=== PATIENT | female | born 1990 | race Caucasian/White ===

== ENCOUNTER → 2017-02-01 | Outpatient (CLI) | payer BC ==
[2017-02-01 19:19] LABS: CH 29.1; CHCM 32.7; HCT 36.6 % (34.0-46.0); HDW 2.61; HGB 12.2 gm/dL (11.4-16.0); MCH 29.9 pg (25.0-35.0); MCHC 33.4 g/dL (31.0-37.0); MCV 89.4 fL (80.0-100.0); Mean Platelet Volume 9.3; WBC 10.8 k/uL (3.8-10.6)
[2017-02-01 19:57] LABS: Glucose 91 mg/dL (74-99); Non-African American GFR(MDRD) >60 (>60 ml/min/1.73 sqM)
[2017-02-02 01:59] LABS: Treponemal Ab Non-Reactive (Non-Reactive)
== END | disposition home or self-care (01) ==
LOC: LABMAIN 18:27
PROVIDERS: ATTEND Obstetrics & Gynecology
DX: Z34.81 Encounter for supervision of other normal pregnancy, first trimester (principal); Z3A.00 Weeks of gestation of pregnancy not specified
CPT/HCPCS: 36415; 82565; 82947; 85027; 86762; 86780; 86850; 86900; 86901; 87340

== ENCOUNTER → 2017-02-09 | Outpatient (CLI) | payer BC ==
--- NOTE | 2017-02-09 13:15 | US ---
EXAMINATION TYPE: US OB <= 14 wk fetus DATE OF EXAM: 02/09/2017 COMPARISON: NONE CLINICAL HISTORY: O76 Abnormal Absent Heart Sounds. Absent heart tones EXAM PERFORMED: Transabdominal (TA) EXAM MEASUREMENTS: GESTATIONAL AGE / DATING Physician Established: (10 weeks/6 days) EDC: 09/01/17 Dates by LMP: (10 weeks/6 days) EDC: 09/01/17 Dates by First Scan: no prior scan Dates by Current Scan for: (11 weeks/3 days) EDC: 08/28/17 MATERNAL ANATOMY Uterus: 15.2 x 5.7 x 8.2cm Right Ovary: 4.0 x 2.2 x 3.1cm Left Ovary: 2.4 x 1.4 x 1.7cm Post CDS / Adnexa: wnl Presence of free fluid: no Presence of corpus luteal cyst: yes, right ovary = 2.2 x 2.0 x 2.0cm GESTATION / SURVEY CRL: 4.6cm (11 weeks/3 days) Yolk Sac (normal less than 6mm): not seen Heart Rate: 165 bpm Rhythm: Normal IUP: Viable IUP Date of LMP: 11/25/16 Beta HcG (if available): Not available at this time Single viable IUP 11wks/3days with NITHIN of 08/28/17. Corpus luteum right ovary Single live intrauterine gestation is seen as gestational sac and pole are identified. Yolk sac is not clearly seen. heart tones are regular and measure upper limits of normal. No free fluid is seen in pelvic cul-de-sac. Both ovaries are identified. Within periphery of right ovary there is 2.2 cm hypoechoic lesion felt t o reflect corpus luteal cyst. No suspicious extra ovarian adnexal masses are identified. IMPRESSION: Single live intrauterine gestation is confirmed, mean crown-rump length is 4.6 cm corresponding to 11 week 3 day old fetus.
== END | disposition home or self-care (01) ==
LOC: RADUSWWP 11:39
PROVIDERS: ATTEND Obstetrics & Gynecology
DX: O76 Abnormality in fetal heart rate and rhythm complicating labor and delivery (principal); Z3A.11 11 weeks gestation of pregnancy
CPT/HCPCS: 76801

== ENCOUNTER → 2017-04-27 | Outpatient (CLI) | payer BC ==
--- NOTE | 2017-04-28 07:57 | US ---
EXAMINATION TYPE: US OB Call Back DATE OF EXAM: 04/27/2017 COMPARISON: NONE CLINICAL HISTORY: Anatomy OB callback. Assess LVOT/RVOT GESTATIONAL AGE / DATING Dates by Initial Survey Scan: (21 weeks/5 days) EDC: 09/01/2017 HEART RATE: 143 bpm RHYTHM: Normal ANATOMY SEEN (second anatomic survey look): Four Chamber Heart: yes Outflow tracts:? LVOT/RVOT: yes IMPRESSION: 4 chamber heart Outflow tracts are within normal limits.
== END | disposition home or self-care (01) ==
LOC: CANPRECLI → RADUSWWP 16:25
PROVIDERS: ATTEND Obstetrics & Gynecology
DX: Z53.9 Procedure and treatment not carried out, unspecified reason (principal)

== ENCOUNTER 2017-08-27 06:02 | Inpatient (IN) | payer BC ==
--- NOTE | 2017-08-26 06:19 | P.HPOB ---
History of Present Illness H&P Date: 08/26/17 Chief Complaint: Patient is presenting for repeat section. This patient is a pleasant 27-year-old 2 para 1 female estimated date of confinement 09/01/2018 estimated gestational age 39-2/7 weeks who presents to labor and delivery for elective repeat section. Patient's care has been uncomplicated. She's had a previous section and has requested repeat. Review of Systems Gastrointestinal: Reports heartburn Genitourinary: Reports Menstruation: Reports amenorrhea Past Medical History Past Medical History: No Reported History Additional Past Medical History / Comment(s): Morbid obesity. History of Any Multi-Drug Resistant Organisms: None Reported Past Surgical History: Section, Cholecystectomy Additional Past Surgical History / Comment(s): oral surgery Past Anesthesia/Blood Transfusion Reactions: No Reported Reaction Past Psychological History: No Psychological Hx Reported Smoking Status: Never smoker Past Alcohol Use History: None Reported Past Drug Use History: None Reported - Past Family History Mother Family Medical History: Cancer Medications and Allergies Home Medications Medication Instructions Recorded Confirmed Type Cetirizine HCl [Zyrtec] 10 mg PO HS 08/24/17 08/24/17 History Pnv No.95/Ferrous Fum/Folic AC 1 each PO DAILY 08/24/17 08/24/17 History [ Multivitamin Tablet] Allergies Allergy/AdvReac Type Severity Reaction Status Date / Time Penicillins Allergy Rash/Hives Verified 08/24/17 14:24 Exam - OBG Physical Exam Abdomen: bowel sounds normal, no diffuse tenderness, no bruit present, no guarding noted, no hepatomegaly, no splenomegaly, no mass Vulva: both: normal Vagina: normal moisture, no discharge Cervix: no lesion (Cervix in the office was closed.), no discharge Uterus: enlarged (Fundal height is greater than dates.) Results blood work shows she is O positive, rubella immune, RPR nonreactive, hepatitis B negative, group B strep was positive, Glucola was abnormal but a normal three-hour gtt., ultrasound showed large for gestational age/ macrosomia. Assessment and Plan Assessment: This is a pleasant 27-year-old 2 para 1 female 39-2/7 weeks gestation who is presenting for repeat section secondary to previous section and macrosomia. Plan is repeat low transverse section. This patient I discussed the surgery and risks including risks of infection, bleeding, possible injury bowel, bladder, vessels, and/or other organs. She understands increased risk of DVT and pulmonary embolism. All the patient's questions are answered and a written consent is obtained. (1) Previous delivery affecting Status: Acute Code(s): O34.219 - MATERNAL CARE FOR UNSP TYPE SCAR FROM PREVIOUS DEL SNOMED Code(s): 153808026 (2) macrosomia Status: Acute Code(s): O36.60X0 - MATERNAL CARE FOR EXCESS GROWTH, UNSP TRIMESTER, UNSP SNOMED Code(s): 65543506 (3) Group B streptococcal carriage complicating Status: Acute Code(s): O99.820 - STREPTOCOCCUS B CARRIER STATE COMPLICATING SNOMED Code(s): 661909378202672 (4) Morbid obesity Status: Acute Code(s): E66.01 - MORBID (SEVERE) OBESITY DUE TO EXCESS CALORIES SNOMED Code(s): 625300171
[2017-08-27] MEDS ORDERED: LACTATED RINGERS 1,000 ML IV SCH (06:14)
[2017-08-27] MEDS ORDERED: LACTATED RINGERS 1,000 ML IV ONE (06:14)
[2017-08-27] MEDS ORDERED: CITRIC ACID-SODIUM CITRATE 15 ML CUP PO ONE (06:14)
[2017-08-27 06:28] VITALS: BMI 48.1
[2017-08-27 06:52] LABS: HCT 34.3 % (34.0-46.0); HGB 11.6 gm/dL (11.4-16.0); MCH 27.7 pg (25.0-35.0); MCHC 33.8 g/dL (31.0-37.0); MCV 81.9 fL (80.0-100.0); Mean Platelet Volume 12.2; Platelet Count 122 k/uL (150-450); RBC 4.19 m/uL (3.80-5.40); RDW 15.1 % (11.5-15.5); WBC 13.4 k/uL (3.8-10.6)
[2017-08-27 07:22] LABS: Eosinophils # (M) 0.13 k/uL (0-0.7); Large Platelets Present; Lymphocytes # (M) 1.74 k/uL (1.0-4.8); Monocytes # (M) 1.47 k/uL (0-1.0); Neutrophils # (M) 10.05 k/uL (1.3-7.7); Neutrophils % (M) 75 %; Nucleated Red Blood Cells 0 /100 WBC (0-0); Total Cells Counted 100
[2017-08-27] MEDS ORDERED: OXYTOCIN 10 UNIT/ML 1 ML VIAL ONE (07:53)
[2017-08-27] MEDS ORDERED: MORPHINE SULFATE (PF) 0.3 MG/0.3 ML SYR ONE (07:53)
[2017-08-27] MEDS ORDERED: PROMETHAZINE INJ 25 MG/ML 1 ML VIAL ONE (07:53)
[2017-08-27] MEDS ORDERED: ONDANSETRON 4 MG/2 ML VIAL ONE (07:53)
[2017-08-27] MEDS ORDERED: NALBUPHINE 10 MG/ML AMPUL ONE (07:53)
[2017-08-27] MEDS ORDERED: DEXTROSE 50%-WATER 50 ML SYRINGE IVP ONE (07:53)
[2017-08-27] MEDS ORDERED: DEXAMETHASONE SOD PHOS (MDV) 100 MG/10 ML VIAL ONE (07:53)
[2017-08-27] MEDS ORDERED: PHENYLEPHRINE-0.9% NACL SYG 1 MG/10 ML SYRINGE ONE (07:53)
[2017-08-27] MEDS ORDERED: NALOXONE 0.4 MG/ML 1 ML VIAL IV PRN ×2 (08:36→08:46)
[2017-08-27] MEDS ORDERED: KETOROLAC 30 MG/ML 1 ML VIAL IVP PRN ×2 (08:36→08:46)
[2017-08-27] MEDS ORDERED: ONDANSETRON 4 MG/2 ML VIAL IVP PRN ×2 (08:36→08:46)
[2017-08-27] MEDS ORDERED: MORPHINE SULFATE 4 MG/ML SYRINGE IVP PRN (08:36)
[2017-08-27] MEDS ORDERED: diphenhydrAMINE 50 MG/ML 1 ML VIAL IVP PRN ×2 (08:36→08:46)
[2017-08-27] MEDS ORDERED: ZOLPIDEM 5 MG TAB PO PRN (08:46)
[2017-08-27] MEDS ORDERED: LANOLIN CREAM 5 GM TUBE TOPICAL PRN (08:46)
[2017-08-27] MEDS ORDERED: OXYTOCIN 20 UNITS/1000 ML NS 1,000 ML IV SCH (08:46)
[2017-08-27] MEDS ORDERED: diphenhydrAMINE 25 MG CAP PO PRN (08:46)
[2017-08-27] MEDS ORDERED: METOCLOPRAMIDE 5 MG/ML 2 ML VIAL IVP PRN (08:46)
--- NOTE | 2017-08-27 08:53 | P.OP ---
Date of Procedure: 08/27/17 Preoperative Diagnosis: #1: 39-2/7 weeks . #2: Previous section desires repeat. #3: Multi parity desires permanent sterilization. #4: macrosomia. #5: Morbid obesity Postoperative Diagnosis: Same; true knot in the umbilical cord. Procedure(s) Performed: #1: Repeat low transverse section. #2: Bilateral partial salpingectomy. Anesthesia: spinal Surgeon: Azeem Ivory Heel Nail Rasper #1: Margarita Isidro Estimated Blood Loss (ml): 800 Pathology: other (Placenta and bilateral fallopian tube segments.) Condition: stable Disposition: floor Indications for Procedure: Please see dictated H&P for intimate details of this patient's admission. Brief summary this is a pleasant 27-year-old 2 para 1 female 39-2/7 weeks gestation who is admitted to labor and delivery for elective repeat section and also requesting permanent sterilization. Patient understands a tubal ligation is a permanent procedure although does have a failure rate. She understands if she does become she has a 50% chance of a tubal or an ectopic . Patient also understands surgery itself has risks including risks of infection, bleeding, possible injury bowel, bladder , vessels, and/or other organs. Patient her stands risk of DVT and pulmonary embolism. All the patient's questions are answered and a written consent is obtained. Operative Findings: This is a vigorous viable male Apgars were 8 and 9 delivery time is 0817 hours. weight was 10 lbs. 2 oz. which is 4580 g. There was a true knot in the umbilical cord. Description of Procedure: This patient has a Carvalho catheter placed to straight drain. She is subsequently taken to the operating room where she is sat up and spinal anesthetic is administered without incident. With an adequate level of anesthesia she has abdominal prep and drape. Scalpels then taken the previous Pfannenstiel incision is incised. A second scalpel is taken down to the fascia and the fascia scored with a knife. Fascial incision extended bilaterally using the Bernal scissors. Fascia is then dissected sharply off the rectus muscles. Rectus muscles are and the peritoneum identified and entered sharply. Peritoneal incision extended superior and inferior without difficulty. At this time the Oseas self-retaining retractor is placed. Bladder blade is placed. The bladder peritoneum was taken sharply off the lower uterine segment with Metzenbaum scissors. Scalpels and taken a low transverse uterine incision is made. Using a hemostat I enter the uterine cavity bluntly and there is loss of clear fluid. This incision is extended bluntly. 's head is then guided through the incision with fundal pressure delivered. Mouth and nares are bulb suctioned. There is no evidence of a nuchal cord. Then deliver the rest this infant's body. This is a vigorous viable male Apgars are 8 and 9 delivery time is 0817 hours. After delivery of the the umbilical cords doubly clamped and cut it is noted this time I do not in the middle the umbilical cord. This is quite loose. The is spontaneous respirations and good cry and. is handed off to the nurses in attendance. The placenta is then manually extracted intact. Uterus is then externalized and the uterine incision demarcated with Lerma clamps. Uterine incision is then closed using 0 Vicryl running locked fashion 2 layers. Excellent hemostasis is noted. Then turned my attention of left fallopian tube and approximately 4 cm from the cornual insertion I grabbed the fallopian tube with a hemostat and a small window is made to the mesial salpinx with Bovie cautery. Using a 2-0 silk suture I doubly ligate a knuckle the tube on both sides. A 1-2 cm segment of tube was then excised and handed off to pathology. Cauterization is done of the tubal ends. Excellent hemostasis is noted I do a similar technique on the right side with similar results. With good hemostasis noted excess fluid is then removed from the abdomen and pelvis. Uterus placed back into the abdomen. Final inspection shows all be hemostatic. The parietal peritoneum was then identified and closed using 0 Vicryl running fashion. The rectus muscles reapproximated in 0 Vicryl interrupted fashion. Fascial incision is then closed using 0 PDS in a running fashion. Fascial incision is intact and hemostatic. Subcutaneous tissues and closed using a 3-0 Vicryl. Skin is and closed using edson. All counts are correct 3. There are no complications. Patient is then taken to her birthing suite with her in satisfactory condition.
[2017-08-27] MEDS: SENNOSIDES-DOCUSATE SODIUM 1 EACH TAB PO SCH ×2 (09:55→19:52)
[2017-08-27] MEDS: LACTATED RINGERS 1,000 ML IV SCH ×3 (12:48→21:49)
[2017-08-27] MEDS: IBUPROFEN 600 MG TAB PO PRN (19:38)
--- NOTE | 2017-08-28 06:35 | P.PNOBGPC ---
Subjective - Subjective Patient reports: Reports appetite normal, Reports voiding normally, Reports pain well controlled, Reports ambulating normally : doing well Objective - Vital Signs Latest vital signs: Vital Signs Temp Pulse Resp BP Pulse Ox 08/28/17 04:00 98.2 F 77 18 122/77 100 08/28/17 03:00 17 08/28/17 00:40 18 08/28/17 00:15 98.2 F 77 18 134/74 98 08/27/17 22:56 18 08/27/17 20:55 18 08/27/17 19:50 97.9 F 73 18 132/82 97 08/27/17 19:45 18 08/27/17 17:00 18 08/27/17 15:28 98.7 F 88 20 136/69 97 08/27/17 15:00 18 08/27/17 12:50 20 08/27/17 11:37 18 08/27/17 10:45 97.7 F 76 16 116/60 98 08/27/17 10:15 69 16 121/56 99 08/27/17 09:45 63 16 128/57 98 08/27/17 09:30 60 16 97/55 94 L 08/27/17 09:15 57 L 16 119/57 98 08/27/17 09:00 67 16 112/58 99 08/27/17 08:45 96.9 F L 64 16 103/54 99 Intake and Output 08/27/17 08/27/17 08/28/17 14:59 22:59 06:59 Intake Total 1000 Output Total 300 1000 400 Balance 700 -1000 -400 Intake: Intake, IV Titration 1000 Amount Lactated Ringers 1,000 ml 1000 @ 125 mls/hr IV .[facility] Rx#:[id number] Output: Urine 300 1000 400 - Exam Lungs: bilateral: normal Chest: Normal S1, Normal S2 Extremities: Present: normal Abdomen: Present: normal appearance, soft. Absent: distention, tenderness Incision: Present: normal, dry, intact Uterus: Present: normal, firm - Labs Labs: Abnormal Lab Results - Last 24 Hours (Table) 08/27/17 Range/Units 06:42 WBC 13.4 H (3.8-10.6) k/uL Plt Count 122 L (150-450) k/uL Neutrophils # (Manual) 10.05 H (1.3-7.7) k/uL Monocytes # (Manual) 1.47 H (0-1.0) k/uL Assessment and Plan Assessment: Post operative day #1. Patient is resting without complaints. Vital signs are stable she is afebrile. Uterus is firm nontender she's having normal lochia. Her incision is intact and dry. CBC is pending at the time of this dictation. My impression this is a normal postoperative course. Plan is to continue ambulation, allow the patient to shower, regular diet, and continue postoperative care. (1) Previous delivery affecting Current Visit: Yes Status: Acute Code(s): O34.219 - MATERNAL CARE FOR UNSP TYPE SCAR FROM PREVIOUS DEL SNOMED Code(s): 846159217 (2) macrosomia Current Visit: Yes Status: Acute Code(s): O36.60X0 - MATERNAL CARE FOR EXCESS GROWTH, UNSP TRIMESTER, UNSP SNOMED Code(s): 69505576 (3) Group B streptococcal carriage complicating Current Visit: Yes Status: Acute Code(s): O99.820 - STREPTOCOCCUS B CARRIER STATE COMPLICATING SNOMED Code(s): 569308262173159 (4) Morbid obesity Current Visit: Yes Status: Acute Code(s): E66.01 - MORBID (SEVERE) OBESITY DUE TO EXCESS CALORIES SNOMED Code(s): 779266156
[2017-08-28] MEDS: IBUPROFEN 600 MG TAB PO PRN ×3 (07:44→19:27)
[2017-08-28 07:47] LABS: Basophils % (A) 0 %; Eosinophils # (A) 0.1 k/uL (0-0.7); Eosinophils % (A) 1 %; HCT 32.2 % (34.0-46.0); HGB 10.8 gm/dL (11.4-16.0); Lymphocytes # (A) 2.3 k/uL (1.0-4.8); Lymphocytes % (A) 17 %; MCH 27.9 pg (25.0-35.0); MCHC 33.4 g/dL (31.0-37.0); MCV 83.6 fL (80.0-100.0); Mean Platelet Volume 11.9; Monocytes # (A) 1.1 k/uL (0-1.0); Monocytes % (A) 8 %; Neutrophils # (A) 10.1 k/uL (1.3-7.7); Neutrophils % (A) 73 %; Platelet Count 103 k/uL (150-450); RBC 3.85 m/uL (3.80-5.40); RDW 15.5 % (11.5-15.5); WBC 13.7 k/uL (3.8-10.6)
[2017-08-28 08:20] LABS: Large Platelets Present; Poikilocytosis (M) Present
[2017-08-28] MEDS: ACETAMINOPHEN TAB 325 MG TAB PO PRN ×2 (10:28→22:45)
[2017-08-28] MEDS: SENNOSIDES-DOCUSATE SODIUM 1 EACH TAB PO SCH ×2 (19:26→19:59)
[2017-08-28] MEDS: LACTATED RINGERS 1,000 ML IV SCH ×2 (19:58→19:59)
--- NOTE | 2017-08-28 20:26 | P.PN ---
Progress Note - Text Date:08/28 Time:2009 Patient is status post . Patient seen this morning with VAS score of 2. c/o of pruritus, no c/o nausea/vomiting, comfortable and doing well today.
[2017-08-29 00:38] VITALS: RESP 18; TEMP 97.8
[2017-08-29] MEDS: IBUPROFEN 600 MG TAB PO PRN ×2 (01:37→09:12)
--- NOTE | 2017-08-29 06:37 | P.PNOBGPC ---
Subjective - Subjective Patient reports: Reports appetite normal, Reports voiding normally, Reports pain well controlled, Reports ambulating normally : doing well Objective - Vital Signs Latest vital signs: Vital Signs Temp Pulse Resp BP Pulse Ox 08/29/17 00:00 97.8 F 77 18 134/78 100 08/28/17 16:38 98.0 F 86 16 144/83 08/28/17 08:00 97.8 F 92 16 120/63 - Exam Lungs: bilateral: normal Chest: Normal S1, Normal S2 Extremities: Present: normal Abdomen: Present: normal appearance, soft. Absent: distention, tenderness Incision: Present: normal, dry, intact Uterus: Present: normal, firm - Labs Labs: Abnormal Lab Results - Last 24 Hours (Table) 08/28/17 Range/Units 07:25 WBC 13.7 H (3.8-10.6) k/uL Hgb 10.8 L (11.4-16.0) gm/dL Hct 32.2 L (34.0-46.0) % Plt Count 103 L (150-450) k/uL Neutrophils # 10.1 H (1.3-7.7) k/uL Monocytes # 1.1 H (0-1.0) k/uL Assessment and Plan Assessment: Post operative day #2. Patient is resting without complaints. She wishes to go home. Vital signs are stable she is afebrile. Uterus is firm nontender, and her incision is intact and dry. Patient is tolerating regular diet, urinating, ambulating without difficulty. My impression this patient is doing very well stable for discharge home. Plan is discharge home later today (1) Previous delivery affecting Current Visit: Yes Status: Acute Code(s): O34.219 - MATERNAL CARE FOR UNSP TYPE SCAR FROM PREVIOUS DEL SNOMED Code(s): 763386376 (2) macrosomia Current Visit: Yes Status: Acute Code(s): O36.60X0 - MATERNAL CARE FOR EXCESS GROWTH, UNSP TRIMESTER, UNSP SNOMED Code(s): 87580493 (3) Group B streptococcal carriage complicating Current Visit: Yes Status: Acute Code(s): O99.820 - STREPTOCOCCUS B CARRIER STATE COMPLICATING SNOMED Code(s): 263843697653508 (4) Morbid obesity Current Visit: Yes Status: Acute Code(s): E66.01 - MORBID (SEVERE) OBESITY DUE TO EXCESS CALORIES SNOMED Code(s): 061483360
[2017-08-29] MEDS: ACETAMINOPHEN TAB 325 MG TAB PO PRN (06:41)
--- NOTE | 2017-08-29 06:44 | P.DS ---
Providers Date of admission: 08/27/17 06:02 Expected date of discharge: 08/29/17 Attending physician: Azeem Ivory Primary care physician: Stated None - Discharge Diagnosis(es) (1) Previous delivery affecting Current Visit: Yes Status: Acute (2) macrosomia Current Visit: Yes Status: Acute (3) Group B streptococcal carriage complicating Current Visit: Yes Status: Acute (4) Morbid obesity Current Visit: Yes Status: Acute Hospital Course: Please see dictated H&P for intimate details of this patient's admission. Brief summary this pleasant 27-year-old 2 para 1 female 39-2/7 weeks gestation admitted to labor and delivery for elective repeat section and also requesting permanent sterilization. Patient underwent a repeat low transverse section and bilateral partial salpingectomy for a viable male infant. Please see dictated delivery note. Post operative day #2 patient is doing well felt to be stable for discharge home. Of note she did have mild thrombocytopenia on admission of 120 repeat was 101. Plan is to repeat this as an outpatient. This appears to be in a mild thrombocytopenia the . Patient is discharged home follow up with me in 1 week. Procedures: Repeat low transverse section and bilateral partial salpingectomy Patient Condition at Discharge: Good Plan - Discharge Summary New Discharge Prescriptions: New Ibuprofen [Motrin] 600 mg PO Q6HR PRN #40 tab PRN Reason: Mild Pain Or Fever >= 100.5 No Action Cetirizine HCl [Zyrtec] 10 mg PO HS Pnv No.95/Ferrous Fum/Folic AC [ Multivitamin Tablet] 1 each PO DAILY Discharge Medication List Cetirizine HCl [Zyrtec] 10 mg PO HS 08/24/17 [History] Pnv No.95/Ferrous Fum/Folic AC [ Multivitamin Tablet] 1 each PO DAILY [History] Ibuprofen [Motrin] 600 mg PO Q6HR PRN #40 tab 08/29/17 [Rx] Follow up Appointment(s)/Referral(s): Azeem Ivory MD [STAFF PHYSICIAN] - 1 Week (Please call the office tomorrow to see me in approximately 1 week for an incision check. You do have a visit on October 13 at a 40 5 AM.) Patient Instructions/Handouts: (DC) Activity/Diet/Wound Care/Special Instructions: No strenuous activity or lifting for 6 weeks. No intercourse for 6 weeks. Please call if any fever, chills, excessive vaginal bleeding, and/or abdominal pain. Discharge Disposition: HOME SELF-CARE
[2017-08-29 09:19] VITALS: BP 144/81; PULSE 88
[2017-08-29] MEDS: SENNOSIDES-DOCUSATE SODIUM 1 EACH TAB PO SCH (09:20)
== END 2017-08-29 11:50 | disposition home or self-care (01) | DRG 765 ==
LOC: 4FBP 06:02
PROVIDERS: ADMIT Obstetrics & Gynecology; ATTEND Obstetrics & Gynecology
PROC: 0UB70ZZ Excision of Bilateral Fallopian Tubes, Open Approach (ICD-10-PCS; 2017-08-27)
PROC: 10D00Z1 Extraction of Products of Conception, Low, Open Approach (ICD-10-PCS; principal; 2017-08-27 08:00)
DX: O34.211 Maternal care for low transverse scar from previous cesarean delivery (principal); O99.12 Other diseases of the blood and blood-forming organs and certain disorders involving the immune mechanism complicating childbirth; Z37.0 Single live birth; O99.62 Diseases of the digestive system complicating childbirth; R12 Heartburn; O69.2XX0 Labor and delivery complicated by other cord entanglement, with compression, not applicable or unspecified; O36.63X0 Maternal care for excessive fetal growth, third trimester, not applicable or unspecified; D69.6 Thrombocytopenia, unspecified; O99.824 Streptococcus B carrier state complicating childbirth; O99.214 Obesity complicating childbirth; E66.01 Morbid (severe) obesity due to excess calories; Z68.42 Body mass index [BMI] 45.0-49.9, adult; Z3A.39 39 weeks gestation of pregnancy
CPT/HCPCS: 85025; 86850; 86900; 86901; 88302; 88307

== ENCOUNTER → 2018-08-23 | Outpatient (CLI) | payer BC ==
--- NOTE | 2018-08-23 15:46 | US ---
EXAMINATION TYPE: US abdomen complete DATE OF EXAM: 08/23/2018 COMPARISON: NONE CLINICAL HISTORY: R74.8 Elevated liver enzymes. Elevated liver enzymes, diarrhea and abdominal crampi ng, cholecystectomy EXAM MEASUREMENTS: Liver Length: 16.9 cm Gallbladder Wall: Surgically absent CBD: 0.5 cm Spleen: 14.0 cm Right Kidney: 13.0 x 3.9 x 5.7 cm Left Kidney: 14.0 x 5.7 x 5.8 cm Technical limitations due to large amount of overlying bowel content Pancreas: Obscured by bowel gas Liver: appears wnl Gallbladder: Surgically absent Evidence for sonographic Gallardo's sign: no CBD: appears wnl Spleen: enlarged Right Kidney: no evidence of hydronephrosis Left Kidney: no evidence of hydronephrosis Upper IVC: wnl Abd Aorta: visualized portions appear wnl IMPRESSION: 1. Abdomen ultrasound as visualized is normal.
== END | disposition home or self-care (01) ==
LOC: RADUSWWP 06:58
PROVIDERS: ATTEND Family Medicine
DX: R74.8 Abnormal levels of other serum enzymes (principal)
CPT/HCPCS: 76700

== ENCOUNTER 2021-04-12 11:23 | Emergency (ER) | payer BC, OTHER ==
[2021-04-12 12:19] VITALS: BP 177/80; PULSE 72; RESP 16; TEMP 98.6
[2021-04-12] MEDS: PROPARACAINE 0.5% OPHTH DROPS 15 ML BTL RIGHT EYE STA (12:29)
[2021-04-12] MEDS: FLUORESCEIN STRIPS 1 MG STRIP RIGHT EYE ONE (12:29)
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
[2021-04-12] MEDS: ATROPINE OPHTH SOLN 1% 5ML BTL RIGHT EYE SCH (13:36)
[2021-04-12] MEDS: prednisoLONE ACETATE 1% OPHTH DROPS 5 ML BTL RIGHT EYE SCH (13:36)
[2021-04-12] MEDS: DORZOLAMIDE-TIMOLOL 2.23%/0.68 10ML BTL RIGHT EYE SCH (13:36)
== END 2021-04-12 13:51 | disposition home or self-care (01) ==
LOC: EC 11:23
DX: S05.91XA Unspecified injury of right eye and orbit, initial encounter (principal); S05.11XA Contusion of eyeball and orbital tissues, right eye, initial encounter
CPT/HCPCS: 99283

== ENCOUNTER → 2022-04-02 | Outpatient (CLI) | payer BC ==
[2022-04-02 13:33] VITALS: RESP 16; BMI 46.4
[2022-04-02 14:17] VITALS: BP 134/87; PULSE 77; TEMP 98.7
--- NOTE | 2022-04-02 14:48 | P.HPBAR ---
Bariatric H&P - History & Physicial H&P Date: 04/02/22 History & Physicial: Visit/CC: Initial Patient initial contact: Initial weight: 126.552 kg Initial weight in pounds: 279.00 Height: 5 ft 5 in Initial BMI: 46.4 Last weight: Current weight: 126.552 kg Current weight in pounds: 279.00 Current BMI: 46.4 [place] body weight (based on NIH guidelines): 56.699 kg Excess body weight loss: 0.0% The patient is a 31 year-old F who presents for Bariatric Assessment. Patient here to discuss surgical weight loss methods. Patient interested in sleeve gastrectomy at this time. 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 She has been considering weight loss surgery for some time. Current BMI 46. No significant comorbidities. No tobacco use. Only rare episodes of reflux. No dysphasia. No history of DVT. Surgical history includes 2 and laparoscopic cholecystectomy. Review of Systems The patient denies any acute changes in vision or hearing, no dysphagia or odynophagia, no chest pain or shortness of breath, no dysuria or hematuria, no headache, no runny nose, no rectal bleeding or melena, no unexplained weight loss Past Medical History Past Medical History: No Reported History Additional Past Medical History / Comment(s): Morbid obesity. History of Any Multi-Drug Resistant Organisms: None Reported Past Surgical History: Section, Cholecystectomy Additional Past Surgical History / Comment(s): oral surgery Past Anesthesia/Blood Transfusion Reactions: No Reported Reaction Smoking Status: Never smoker - Past Family History Mother Family Medical History: Cancer Surgical - Exam Vital Signs Pulse Resp 79 16 04/02/22 13:26 04/02/22 13:26 Physical exam: General: Well-developed, well-nourished HEENT: Normocephalic, sclerae nonicteric Abdomen: Nontender, nondistended Extremities: No edema Neuro: Alert and oriented Bariatric Assessment & Plan (1) Morbid obesity Narrative/Plan: 31-year-old female with morbid obesity. Options reviewed in detail. Both surgical and nonsurgical weight loss methods discussed. Sleeve gastrectomy gastric bypass and lap band surgical options reviewed as well. She remains interested in sleeve gastrectomy. Risks and benefits and anticipated postoperative weight loss reviewed. Patient requires 6 month supervised weight loss. That will begin at this time. Tentatively plan EGD 4-5 months from now. Status: Acute Bariatric Checklist Checklist: Plan: Checklist: EGD: 1. Hiatal hernia: 2. H. Pylori: HgbA1c: Vitamin D: Smoking: Former smoker Primary care physician referral: Psychiatry clearance: Cardiology clearance: Sleep study: Diet journal: VTE risk score: VTE risk level: Rehab needs at discharge:
== END ==
LOC: BARWHC3 13:07
PROVIDERS: ATTEND Surgery
DX: E66.01 Morbid (severe) obesity due to excess calories (principal); Z68.42 Body mass index [BMI] 45.0-49.9, adult; Z88.0 Allergy status to penicillin; Z87.891 Personal history of nicotine dependence; Z90.49 Acquired absence of other specified parts of digestive tract
CPT/HCPCS: 99211

== ENCOUNTER → 2022-04-24 | Outpatient (CLI) | payer BC ==
[2022-04-24 15:47] LABS: ALT 21 U/L (8-44); AST 20 U/L (13-35); African American GFR (CKD) 142.4 (60.0-200.0); Albumin 4.4 g/dL (3.8-4.9); Albumin/Globulin Ratio 1.68 (1.60-3.17); Alkaline Phosphatase 99 U/L (41-126); BUN/Creat Ratio 20.36 Ratio (12.00-20.00); Blood Urea Nitrogen 11.3 mg/dL (9.0-27.0); Calcium 9.4 mg/dL (8.7-10.3); Carbon Dioxide 26.9 mmol/L (20.0-27.5); Chloride 104 mmol/L (96-109); Globulin 2.7 g/dL (1.6-3.3); Glucose 98 mg/dL (70-110); Iron 30 ug/dL (50-170); Non-African American GFR(CKD) 122.9 (60.0-200.0); Potassium 4.8 mmol/L (3.5-5.5); Sodium 140 mmol/L (135-145); Total Bilirubin <0.15 mg/dL (0.30-1.20); Total Protein 7.1 g/dL (6.2-8.2)
[2022-04-24 17:11] LABS: HCT 42.6 % (37.2-46.3); HGB 13.4 g/dL (12.0-15.0); MCH 28.5 pg (27.0-32.0); MCHC 31.5 g/dL (32.0-37.0); MCV 90.6 fL (80.0-97.0); Mean Platelet Volume 12.9 fL (9.5-12.2); NRBC Per 100 WBC 0 /100 WBCS (0.0-0.0); Platelet Count 201 X 10*3/uL (140-440); RDW 13.1 % (11.5-14.5); WBC 7.51 X 10*3/uL (4.50-10.00)
== END | disposition home or self-care (01) ==
LOC: LABWHC1 08:38
PROVIDERS: ATTEND Surgery
DX: Z71.51 Drug abuse counseling and surveillance of drug abuser (principal); E55.9 Vitamin D deficiency, unspecified; K90.89 Other intestinal malabsorption; R00.1 Bradycardia, unspecified
CPT/HCPCS: 36415; 80053; 80323; 82306; 82607; 82746; 83540; 84425; 85027; 93005

== ENCOUNTER → 2022-08-03 | Outpatient (CLI) | payer BC ==
[2022-08-03 10:59] VITALS: BMI 50.7
== END ==
LOC: BARWHC3 08:42
PROVIDERS: ATTEND Surgery
DX: E66.01 Morbid (severe) obesity due to excess calories (principal); Z71.3 Dietary counseling and surveillance; Z68.43 Body mass index [BMI] 50.0-59.9, adult; Z88.0 Allergy status to penicillin; Z87.891 Personal history of nicotine dependence
CPT/HCPCS: 97804

== ENCOUNTER 2022-08-04 10:39 | Day surgery (SDC) | payer BC, OTHER ==
[2022-07-29 18:07] VITALS: BMI 48.0
[~2022-08-04 10:39] MED LIST: LACTATED RINGERS 1,000 ML IV SCH; LIDOCAINE 1% (10MG/ML) FOR IV START INTRADERMA PRN
[2022-08-04] MEDS ORDERED: LACTATED RINGERS 1,000 ML IV ONE (11:20)
[2022-08-04 11:30] VITALS: TEMP 98.8
[2022-08-04] MEDS ORDERED: MIDAZOLAM 2 MG/2 ML VIAL ONE (11:35)
[2022-08-04] MEDS ORDERED: LIDOCAINE 2% INJ 20 MG/ML (2 ML VIAL) ONE (11:35)
[2022-08-04] MEDS ORDERED: fentaNYL (PF) 50 MCG/ML 2 ML AMP ONE (11:35)
[2022-08-04] MEDS ORDERED: PROPOFOL 10 MG/ML 20 ML VIAL IV ONE (11:35)
--- NOTE | 2022-08-04 11:38 | P.GSHP ---
History of Present Illness H&P Date: 08/04/22 Chief Complaint: GERD, presurgical 32-year-old female here for upper endoscopy. Patient looking into having a sleeve gastrectomy performed. Mild reflux at times. No dysphagia. Past Medical History Past Medical History: No Reported History Additional Past Medical History / Comment(s): Morbid obesity. History of Any Multi-Drug Resistant Organisms: None Reported Past Surgical History: Section, Cholecystectomy Additional Past Surgical History / Comment(s): oral surgery Past Anesthesia/Blood Transfusion Reactions: No Reported Reaction Smoking Status: Never smoker - Past Family History Mother Family Medical History: Cancer Medications and Allergies Home Medications Medication Instructions Recorded Confirmed Type Cetirizine HCl [Zyrtec] 10 mg PO HS 08/24/17 08/04/22 History FLUoxetine HCL [PROzac] 40 mg PO DAILY 07/29/22 08/04/22 History Multivitamins, Thera [Multivitamin 1 tab PO DAILY 07/29/22 08/04/22 History (formulary)] Allergies Allergy/AdvReac Type Severity Reaction Status Date / Time Penicillins Allergy Rash/Hives Verified 08/04/22 11:26 Surgical - Exam Vital Signs Temp Pulse Resp BP Pulse Ox 98.8 F 71 16 142/61 95 08/04/22 11:29 08/04/22 11:29 08/04/22 11:29 08/04/22 11:29 08/04/22 11:29 Physical exam: General: Well-developed, well-nourished HEENT: Normocephalic, sclerae nonicteric Abdomen: Nontender, nondistended Extremities: No edema Neuro: Alert and oriented Assessment and Plan (1) GERD (gastroesophageal reflux disease) Narrative/Plan: Will proceed with upper endoscopy at this time Current Visit: Yes Status: Acute Code(s): K21.9 - GASTRO-ESOPHAGEAL REFLUX DISEASE WITHOUT ESOPHAGITIS SNOMED Code(s): 608527512
--- NOTE | 2022-08-04 11:45 | P.PCN ---
Date of Procedure: 08/04/22 Procedure(s) Performed: Preoperative Dx: GERD, presurgical Postoperative Dx: Mild gastritis Procedure: EGD with Bx Anesthesia: Sedation Endoscopist: Dr. Chang Specimens: Antrum Endoscopic Procedure: The patient was on the endoscopy table in the left decubitus position. The Olympus gastroscope was inserted into the oropharynx and passed under direct visualization to the region of the third portion of the duodenum. From that point the scope was slowly withdrawn inspecting all surfaces carefully. There were no neoplastic inflammatory or polypoid lesions throughout the duodenum. The pylorus was widely patent. The stomach was carefully inspected. There was mild gastritis present. A biopsy of the antrum took place to rule out H. pylori. Retroflexion revealed a normal hiatus. The esophagus was then carefully examined. There were no neoplastic inflammatory or polypoid lesions throughout the visualized esophagus. The patient was then taken to the recovery room in stable condition per anesthesia guidelines. Recommendations: Resume diet. Continue preop workup for sleeve gastrectomy
[2022-08-04 11:50] VITALS: PULSE 75; RESP 18
[2022-08-04 12:16] VITALS: BP 123/81
== END 2022-08-04 12:32 | disposition home or self-care (01) ==
LOC: ORWHC2ENDO 10:39
PROVIDERS: ATTEND Surgery
DX: K29.50 Unspecified chronic gastritis without bleeding (principal); K21.00 Gastro-esophageal reflux disease with esophagitis, without bleeding; E66.01 Morbid (severe) obesity due to excess calories; Z68.42 Body mass index [BMI] 45.0-49.9, adult; Z98.891 History of uterine scar from previous surgery; Z90.49 Acquired absence of other specified parts of digestive tract; Z88.0 Allergy status to penicillin; Z79.899 Other long term (current) drug therapy
CPT/HCPCS: 81025; 88305; 43239; J2250; J3010; J2704; J2001

== ENCOUNTER → 2022-08-18 | Outpatient (CLI) | payer BC ==
[2022-08-18 14:24] VITALS: BP 155/78; PULSE 71; TEMP 98.1; BMI 51.7
--- NOTE | 2022-08-18 14:44 | P.BASOAP ---
Subjective Progress Note Date: 08/18/22 Principal diagnosis: morbid obesity 32-year-old female returns after recent EGD. EGD showed mild gastritis. Patient remains interested in sleeve gastrectomy. She had her last office visit with her primary care physician today. Patient is anxious to get the surgery going. Current BMI 51.7. Objective - Vital Signs Vital signs: Vital Signs Temp 98.1 F 08/18/22 14:18 Pulse 71 08/18/22 14:18 Resp BP 155/78 08/18/22 14:18 Pulse Ox FiO2 Intake & Output 08/17/22 08/18/22 08/18/22 18:59 06:59 18:59 Weight 132.449 kg - Exam Abdomen: Soft, nontender, nondistended Assessment/Plan (1) Morbid obesity Narrative/Plan: 32-year-old female with morbid obesity. Patient is interested in proceeding with sleeve gastrectomy. The surgical consent form was reviewed in detail and all risks reviewed. All questions answered. We'll schedule for sleeve gastrectomy in the next few months. Patient states she is willing to have surgery on a Wednesday if needed. Notified patient that there are certain weekends that I have other surgeons covering me. She is okay with that. Plan: Date: 08/18/22 Initial Weight: 126.552 kg Initial BMI: 49.4 Current Weight: 132.449 kg Current BMI: 51.7 Type of Surgery: Total Volume in Band: Previous Volume: Volume Removed: Volume Added: Band Size:
== END ==
LOC: BARWHC3 14:02
PROVIDERS: ATTEND Surgery
DX: E66.01 Morbid (severe) obesity due to excess calories (principal); Z98.84 Bariatric surgery status; Z68.43 Body mass index [BMI] 50.0-59.9, adult; Z88.0 Allergy status to penicillin; Z87.891 Personal history of nicotine dependence
CPT/HCPCS: 99211

== ENCOUNTER → 2022-10-09 | Outpatient (CLI) | payer BC ==
[2022-10-09 15:39] LABS: ALT 29 U/L (8-44); AST 28 U/L (13-35); Albumin 4.5 d/dL (3.8-4.9); Albumin/Globulin Ratio 1.67 Ratio (1.60-3.17); Alkaline Phosphatase 78 U/L (41-126); Blood Urea Nitrogen 14.5 mg/dL (9.0-27.0); Calcium 9.6 mg/dL (8.7-10.3); Carbon Dioxide 25.4 mmol/L (21.6-31.8); Chloride 103 mmol/L (96-109); Globulin 2.7 d/dL (1.6-3.3); Glucose 80 mg/dL (70-110); Potassium 4.3 mmol/L (3.5-5.5); Sodium 139 mmol/L (135-145); Total Bilirubin 0.3 mg/dL (0.3-1.2); Total Protein 7.2 d/dL (6.2-8.2)
[2022-10-09 15:48] LABS: Basophils # (A) 0.06 X 10*3/uL (0.00-0.10); Basophils % (A) 0.9 %; Eosinophils # (A) 0.21 X 10*3/uL (0.04-0.35); Eosinophils % (A) 3.1 %; HCT 40.7 % (37.2-46.3); HGB 13.1 d/dL (12.0-15.0); Lymphocytes # (A) 1.49 X 10*3/uL (0.90-5.00); Lymphocytes % (A) 21.8 %; MCH 28.4 pg (27.0-32.0); MCHC 32.2 d/dL (32.0-37.0); MCV 88.3 FL (80.0-97.0); Mean Platelet Volume 12.7 FL (9.5-12.2); Monocytes # (A) 0.65 X 10*3/uL (0.20-1.00); Monocytes % (A) 9.5 %; NRBC Per 100 WBC 0 X 10*3/uL (0.00-0.01); Neutrophils # (A) 4.42 X 10*3/uL (1.80-7.70); Neutrophils % (A) 64.4 %; Platelet Count 184 X 10*3/uL (140-440); RBC 4.61 X 10*6/uL (4.10-5.20); RDW 12.8 % (11.5-14.5); WBC 6.85 X 10*3/uL (4.50-10.00)
== END | disposition home or self-care (01) ==
LOC: LABPAT 09:13
PROVIDERS: ATTEND Surgery
DX: Z01.812 Encounter for preprocedural laboratory examination (principal)
CPT/HCPCS: 36415; 80053; 85025

== ENCOUNTER 2022-10-16 09:55 | Inpatient (IN) | payer BC ==
[2022-10-12 14:30] VITALS: BMI 48.0
[~2022-10-16 09:55] MED LIST changes: +ACETAMINOPHEN TAB 500 MG TAB PO PRN; +ENOXAPARIN 40 MG/0.4 ML SYRINGE SQ PRN; -LACTATED RINGERS 1,000 ML IV SCH; -LIDOCAINE 1% (10MG/ML) FOR IV START INTRADERMA PRN; +ONDANSETRON 4 MG/2 ML VIAL IVP PRN; +ceFAZolin 3 GM in SODIUM CHLORIDE 0.9% 100 ML IVPB PRN
--- NOTE | 2022-10-16 10:36 | P.GSHP ---
History of Present Illness H&P Date: 10/16/22 Chief Complaint: Morbid obesity 32-year-old female seen in the office over the last several months regarding her morbid obesity. Patient here today for sleeve gastrectomy. Patient has considered other weight loss alternatives both surgical and nonsurgical and would like to proceed with sleeve gastrectomy. Patient has mild reflux symptoms at times. Recent EGD showed mild gastritis. No tobacco use. Current BMI 48. Abdominal surgeries include and laparoscopic cholecystectomy. Past Medical History Past Medical History: No Reported History Additional Past Medical History / Comment(s): Morbid obesity. SEASONAL ALLERGIES History of Any Multi-Drug Resistant Organisms: None Reported Past Surgical History: Section, Cholecystectomy Additional Past Surgical History / Comment(s): oral surgery, EGD Past Anesthesia/Blood Transfusion Reactions: No Reported Reaction Smoking Status: Former smoker - Past Family History Mother Family Medical History: Cancer Medications and Allergies Home Medications Medication Instructions Recorded Confirmed Type Cetirizine HCl [Zyrtec] 10 mg PO HS 08/24/17 10/12/22 History FLUoxetine HCL [PROzac] 40 mg PO DAILY 07/29/22 10/12/22 History Multivitamins, Thera [Multivitamin 1 tab PO DAILY 07/29/22 10/12/22 History (formulary)] Allergies Allergy/AdvReac Type Severity Reaction Status Date / Time Penicillins Allergy Rash/Hives Verified 10/12/22 14:18 Surgical - Exam Physical exam: General: Well-developed, well-nourished HEENT: Normocephalic, sclerae nonicteric Abdomen: Nontender, nondistended Extremities: No edema Neuro: Alert and oriented Assessment and Plan (1) Morbid obesity Narrative/Plan: 32-year-old female with morbid obesity. We'll proceed with laparoscopic da Nitza assisted sleeve gastrectomy, possible open. The risks of bleeding, infection, stenosis, stricture, leak, abscess, fistula formation, peritonitis, poor weight loss, reflux, vomiting, conversion to an open procedure, aborting sleeve gastrectomy, IA, PE, DVT, and were discussed. The patient understands and wishes to proceed. Current Visit: No Status: Acute Code(s): E66.01 - MORBID (SEVERE) OBESITY DUE TO EXCESS CALORIES SNOMED Code(s): 035436471
[2022-10-16] MEDS ORDERED: MIDAZOLAM 2 MG/2 ML VIAL IV PRN (10:41)
[2022-10-16] MEDS ORDERED: HYDROmorphone 0.5 MG/0.5 ML SYRINGE IVP PRN ×2 (10:41→15:12)
[2022-10-16] MEDS: LACTATED RINGERS 1,000 ML IV SCH (11:07)
[2022-10-16 11:12] LABS: Glucose,Whole Blood 85 mg/dL (70-110)
[2022-10-16] MEDS ORDERED: SCOPOLAMINE 1 MG/72 HR PATCH TRANSDERM ONE (11:19)
[2022-10-16] MEDS ORDERED: DEXAMETHASONE SOD PHOSPHATE 4 MG/ML 1 ML VIAL IV ONE (11:19)
[2022-10-16] MEDS ORDERED: HYDROmorphone (PF) 1 MG/ML ONE (13:14)
[2022-10-16] MEDS ORDERED: PROPOFOL 10 MG/ML 20 ML VIAL IV ONE (13:14)
[2022-10-16] MEDS ORDERED: LIDOCAINE 2% INJ 20 MG/ML (2 ML VIAL) ONE (13:14)
[2022-10-16] MEDS ORDERED: NEOSTIGMINE 1 MG/ML 10 ML VIAL ONE (13:14)
[2022-10-16] MEDS ORDERED: GLYCOPYRROLATE 0.2 MG/ML 2 ML VIAL ONE (13:14)
[2022-10-16] MEDS ORDERED: fentaNYL (PF) 50 MCG/ML 2 ML AMP ONE (13:14)
[2022-10-16] MEDS ORDERED: ePHEDrine 50 MG/ML 1 ML VIAL ONE (13:14)
[2022-10-16] MEDS ORDERED: MIDAZOLAM 2 MG/2 ML VIAL ONE (13:14)
[2022-10-16] MEDS ORDERED: SUCCINYLCHOLINE CHLORIDE 200 MG/10 ML VIAL IV ONE (13:14)
[2022-10-16] MEDS ORDERED: ROCURONIUM 10 MG/ML (5 ML VIAL) IV ONE (13:14)
[2022-10-16] MEDS ORDERED: BUPIVACAINE (PF) 0.25% 30 ML VIAL SQ ONE ×2 (13:37)
[2022-10-16] MEDS ORDERED: diphenhydrAMINE 50 MG/ML 1 ML VIAL IVP PRN (15:12)
[2022-10-16] MEDS ORDERED: SIMETHICONE 80 MG CHEWABLE PO PRN (15:12)
[2022-10-16] MEDS ORDERED: NALOXONE 0.4 MG/ML 1 ML VIAL IV PRN (15:12)
[2022-10-16] MEDS ORDERED: HYOSCYAMINE ORAL DROPS 1.875 MG/15 ML BOTTLE PO PRN (15:12)
--- NOTE | 2022-10-16 15:18 | P.OP ---
Date of Procedure: 10/16/22 Procedure(s) Performed: PREOPERATIVE DIAGNOSIS: Morbid obesity, GERD POSTOPERATIVE DIAGNOSIS: Same PROCEDURE: Da Nitza assisted laparoscopic sleeve gastrectomy SURGEON: Bernardo EBL: Minimal ANESTHESIA: General COMPLICATIONS: None OPERATIVE PROCEDURE: Patient was placed in the operating table in the supine po sition. The patient was then placed under general anesthesia at that time. The abdomen was prepped and draped in the usual sterile fashion. A 5 mm optical trocar was placed in the left upper quadrant 20 cm inferior to the xiphoid process. Insufflation took place up to 15 mmHg. No adhesions were seen. A 5 mm subxiphoid incision was made and the medium Elisa retractor was used to elevate the left lobe of liver anteriorly. This was held in place using the fixed arm retractor. An additional 12 mm trocar was placed in the right paramedian location and 2 additional 8 mm trochars were placed in the left upper quadrant one medial and one lateral to the initially placed optical trocar. All of these trochars were placed along the same plane. The initial 5 was then switched to an 8 mm trocar. The robot was then docked appropriately. The 8 mm camera was placed in the left paramedian trocar site down viewing. A fenestrated bipolar was placed in arm 1, arm 3 had the vessel sealer, arm 4 had the bipolar forceps as well. The hiatus was inspected and there was no visible hiatal hernia. At that point I moved to the distal aspect of the greater curvature the stomach. The short gastric vasculature were divided using the vessel sealer. This dissection took place distally until we were 4 cm from the pylorus. The posterior adhesions were divided as well. The dissection then t ook place proximally along the stomach until the posterior short gastrics were divided and the fundus of the stomach was fully mobilized. Once the stomach was fully mobilized the blunt tipped 40-Icelandic bougie dilator was advanced into the stomach and advanced all the way to the prepyloric location. The patient's stomach by palpation seemed to be of average thickness. Ethicon SLR buttress material was utilized along the staple line. One black, to Green, 3 blue loads were utilized. The stomach was then placed in the right upper quadrant after it was fully excised. The oral gastric tube was reinserted. The stomach was insufflated with approximately 100 mL of methylene blue. No evidence of leak or obstruction was seen. The pressure was dropped to 8 mm in the staple line was inspected for 2-3 minutes. No bleeding was seen. Tisseel fibrin glue was then used along the length of the staple line. The robot was then undocked. The da Nitza laparoscope was used and the stomach was removed from the 12 mm trocar site without difficulty. The fascia at the 12mm site was closed using [id number] 0 Vicryl sutures with the laparoscopic suture passer and Franko Maxim technique. The insufflation was evacuated. The skin at all 5 incisions were closed using 4-0 Monocryl sutures. Skin glue was then applied. DISPOSITION: Stable to recovery room
[2022-10-16] MEDS: ONDANSETRON 4 MG/2 ML VIAL IVP PRN ×2 (15:30→20:59)
[2022-10-16] MEDS ORDERED: droPERidol 5 MG/2 ML VIAL IVP ONE (15:42)
[2022-10-16] MEDS ORDERED: LACTATED RINGERS 1,000 ML IV ONE (15:44)
[2022-10-16] MEDS ORDERED: FAMOTIDINE 20 MG/2 ML VIAL IVP ONE (16:01)
[2022-10-16] MEDS ORDERED: METOCLOPRAMIDE 5 MG/ML 2 ML VIAL IVP ONE (16:01)
[2022-10-16] MEDS ORDERED: diphenhydrAMINE 50 MG/ML 1 ML VIAL IVP ONE (16:02)
[2022-10-16] MEDS: ALBUTEROL NEBULIZED 2.5 MG/3 ML INHALATION SCH ×2 (16:36→19:34)
[2022-10-16] MEDS: ACETAMINOPHEN IV (For NPO) 1,000 MG in EMPTY BAG 1 BAG IVPB SCH (17:35)
[2022-10-16] MEDS: 0.9% NACL WITH KCL 20 MEQ/L 1,000 ML IV SCH (18:04)
[2022-10-16] MEDS: HYDROmorphone 1 MG/ML 1 ML SYRINGE IVP PRN (20:59)
[2022-10-17] MEDS: 0.9% NACL WITH KCL 20 MEQ/L 1,000 ML IV SCH ×6 (02:21→20:22)
[2022-10-17] MEDS: ACETAMINOPHEN IV (For NPO) 1,000 MG in EMPTY BAG 1 BAG IVPB SCH ×4 (02:22→17:30)
[2022-10-17] MEDS: ENOXAPARIN 40 MG/0.4 ML SYRINGE SQ SCH ×2 (03:02→15:12)
[2022-10-17] MEDS: ONDANSETRON 4 MG/2 ML VIAL IVP PRN ×3 (03:02→17:30)
[2022-10-17] MEDS: HYDROmorphone 1 MG/ML 1 ML SYRINGE IVP PRN ×2 (03:02→09:01)
[2022-10-17 08:30] LABS: African American GFR (CKD) >90 (>60 ml/min/1.73 sqM); Anion Gap 9 mmol/L; Blood Urea Nitrogen 3 mg/dL (7-17); Calcium 8.6 mg/dL (8.4-10.2); Carbon Dioxide 25 mmol/L (22-30); Chloride 103 mmol/L (98-107); Magnesium 1.9 mg/dL (1.6-2.3); Non-African American GFR(CKD) >90 (>60 ml/min/1.73 sqM); Phosphorus 2.6 mg/dL (2.5-4.5); Potassium 4.3 mmol/L (3.5-5.1); Sodium 137 mmol/L (137-145)
[2022-10-17] MEDS: PANTOPRAZOLE 40 MG/10 ML VIAL IV SCH (08:53)
[2022-10-17] MEDS: ALBUTEROL NEBULIZED 2.5 MG/3 ML INHALATION SCH ×4 (09:16→20:06)
[2022-10-17 09:33] LABS: Basophils # (A) 0.02 X 10*3/uL (0.00-0.10); Basophils % (A) 0.2 %; Eosinophils # (A) 0 X 10*3/uL (0.04-0.35); Eosinophils % (A) 0 %; HCT 38.5 % (37.2-46.3); HGB 12.4 d/dL (12.0-15.0); Lymphocytes # (A) 0.63 X 10*3/uL (0.90-5.00); Lymphocytes % (A) 5.1 %; MCH 28.9 pg (27.0-32.0); MCHC 32.2 d/dL (32.0-37.0); MCV 89.7 FL (80.0-97.0); Mean Platelet Volume 13.5 FL (9.5-12.2); Monocytes # (A) 0.99 X 10*3/uL (0.20-1.00); NRBC Per 100 WBC 0 X 10*3/uL (0.00-0.01); Neutrophils # (A) 10.59 X 10*3/uL (1.80-7.70); Neutrophils % (A) 86.1 %; Platelet Count 172 X 10*3/uL (140-440); RBC 4.29 X 10*6/uL (4.10-5.20)
--- NOTE | 2022-10-17 09:33 | P.PN ---
Subjective Progress Note Date: 10/17/22 Principal diagnosis: Morbid obesity Patient doing well today. Complaining of mild nausea. Pain is well-controlled. She has been getting out of bed. Upper GI was performed this morning. Films reviewed with the radiologist. No evidence of leak or obstruction. CBC is pending. Vital signs stable. Objective - Vital Signs Vital signs: Vital Signs Temp 97.7 F 10/17/22 01:49 Pulse 70 10/17/22 01:49 Resp 17 10/17/22 01:49 BP 137/86 10/17/22 01:49 Pulse Ox 97 10/17/22 09:16 FiO2 Intake & Output 10/16/22 10/17/22 10/17/22 18:59 06:59 18:59 Intake Total 2125 Output Total 10 300 Balance 2115 -300 Weight 127.5 kg Intake: IV 1700 Intake, IV Titration 400 Amount 0.9% NaCl with KCl 20 Meq 300 /l 1,000 ml @ 150 mls/hr IV .Q6H40M [facility] Rx#: [id number] ACETAMINOPHEN IV (For NPO 100 ) 1,000 mg In Empty Bag 1 bag @ 400 mls/hr IVPB Q6HR [facility] Rx#:[id number] Oral 25 Output: Urine 300 Estimated Blood Loss 10 Other: # Voids 2 - Exam Abdomen: Soft, nondistended, incisions clean and dry - Labs CBC & Chem 7: 10/17/22 05:37 Labs: Abnormal Lab Results - Last 24 Hours (Table) 10/17/22 Range/Units 05:37 BUN 3 L (7-17) mg/dL Creatinine 0.45 L (0.52-1.04) mg/dL Assessment and Plan (1) Morbid obesity Narrative/Plan: Overall patient doing fairly well. Check CBC. Begin bariatric clear liquids. Ambulate. Add Toradol Current Visit: No Status: Acute Code(s): E66.01 - MORBID (SEVERE) OBESITY D UE TO EXCESS CALORIES SNOMED Code(s): 604000950
[2022-10-17 09:53] VITALS: RESP 18
--- NOTE | 2022-10-17 11:40 | FL ---
EXAMINATION TYPE: FL UGI DATE OF EXAM: 10/17/2022 COMPARISON: None HISTORY: Postbariatric surgery TECHNIQUE: A single contrast UGI study is performed. FINDINGS: Contrast passes from the distal esophagus through the gastric sleeve with no significant he sitancy. No extravasation of contrast is evident. No free air is noted during this examination. Fluoroscopy time: 51 seconds. Images: 13 Overhead radiographs were obtained which are unremarkable. IMPRESSIONS: 1. Normal post gastric sleeve without obstruction or hesitancy. No extravasation.
[2022-10-17] MEDS: KETOROLAC 15 MG/ML 1 ML VIAL IVP SCH ×2 (12:26→17:30)
[2022-10-17] MEDS: FLUoxetine HCL 20 MG CAP PO SCH (15:05)
--- NOTE | 2022-10-17 15:15 | P.CONS ---
History of Present Illness - Reason for Consult Consult date: 10/17/22 - History of Present Illness History of present illness; patient 32-year-old lady with past medical history significant for morbid obesity who presented to the hospital for elective sleeve gastrectomy. Patient has been following up outpatient with surgery for the last several months regarding her obesity. Patient has tried weight loss measures but has not been successful. Surgery discussed sleeve gastrectomy for which patient was scheduled on 10/16. Postoperatively the medicine team were consulted REVIEW OF SYSTEMS: CONSTITUTIONAL: No fever, no malaise, no fatigue. HEENT: No recent visual problems or hearing problems. Denied any sore throat. CARDIOVASCULAR: No chest pain, orthopnea, PND, no palpitations, no syncope. PULMONARY: No shortness of breath, no cough, no hemoptysis. GASTROINTESTINAL: Complaining of nausea. Comparing abdominal pain the site of surgery NEUROLOGICAL: No headaches, no weakness, no numbness. HEMATOLOGICAL: Denies any bleeding or petechiae. GENITOURINARY: Denies any burning micturition, frequency, or urgency. MUSCULOSKELETAL/RHEUMATOLOGICAL: Denies any joint pain, swelling, or any muscle pain. ENDOCRINE: Denies any polyuria or polydipsia. The rest of the 14-point review of systems is negative. PHYSICAL EXAMINATION: GENERAL: The patient is alert and oriented x3, not in any acute distress. Well developed, well nourished. HEENT: Pupils are round and equally reacting to light. EOMI. No scleral icterus. No conjunctival pallor. Normocephalic, atraumatic. No pharyngeal erythema. No thyromegaly. CARDIOVASCULAR: S1 and S2 present. No murmurs, rubs, or gallops. PULMONARY: Chest is clear to auscultation, no wheezing or crackles. ABDOMEN: Tenderness present. No palpable organomegaly. Laparoscopic surgical incision seen MUSCULOSKELETAL: No joint swelling or deformity. EXTREMITIES: No cyanosis, clubbing, or pedal edema. NEUROLOGICAL: Gross neurological examination did not reveal any focal deficits. SKIN: No rashes. Assessment and plan morbid Obesity status post laparoscopic sleeve gastrectomy GERD Monitor vital signs Monitor CBC Monitor CMP Continue antiemetics Continue IV fluids Continue pain management per surgery Advance diet per surgery Resume home meds DVT prophylaxis: Past Medical History Past Medical History: No Reported History Additional Past Medical History / Comment(s): Morbid obesity. SEASONAL ALLERGIES History of Any Multi-Drug Resistant Organisms: None Reported Past Surgical History: Section, Cholecystectomy Additional Past Surgical History / Comment(s): oral surgery, EGD Past Anesthesia/Blood Transfusion Reactions: No Reported Reaction Past Psychological History: Anxiety, Depression Smoking Status: Former smoker Past Alcohol Use History: Rare Additional Past Alcohol Use History / Comment(s): QUIT SMOKING 2013 Past Drug Use History: None Reported - Past Family History Mother Family Medical History: Cancer Medications and Allergies Home Medications Medication Instructions Recorded Confirmed Type Cetirizine HCl [Zyrtec] 10 mg PO HS 08/24/17 10/16/22 History FLUoxetine HCL [PROzac] 40 mg PO DAILY 07/29/22 10/16/22 History Multivitamins, Thera [Multivitamin 1 tab PO DAILY 07/29/22 10/16/22 History (formulary)] Allergies Allergy/AdvReac Type Severity Reaction Status Date / Time Penicillins Allergy Rash/Hives Verified 10/16/22 11:02 Physical Exam Vitals: Vital Signs Temp Pulse Pulse Resp BP BP Pulse Ox 10/17/22 09:16 97 10/17/22 08:45 98.3 F 66 18 174/81 96 10/17/22 01:49 97.7 F 70 17 137/86 97 10/16/22 19:41 98.1 F 68 19 131/78 93 L 10/16/22 17:32 97 118/77 96 10/16/22 17:18 103 H 128/66 99 10/16/22 16:57 97.8 F 66 16 116/77 97 10/16/22 16:30 81 16 135/55 96 10/16/22 16:15 65 16 138/63 97 10/16/22 16:00 68 16 132/62 96 10/16/22 15:45 64 16 124/58 96 10/16/22 15:30 63 16 123/58 96 10/16/22 15:16 99 F 85 14 134/63 98 10/16/22 10:58 97.6 F 69 20 125/66 97 Intake and Output 10/16/22 10/17/22 10/17/22 22:59 06:59 14:59 Intake Total 1175 Output Total 310 Balance 865 Intake: IV 750 Intake, IV Titration 400 Amount 0.9% NaCl with KCl 20 Meq 300 /l 1,000 ml @ 150 mls/hr IV .Q6H40M [facility] Rx#: [id number] ACETAMINOPHEN IV (For NPO 100 ) 1,000 mg In Empty Bag 1 bag @ 400 mls/hr IVPB Q6HR [facility] Rx#:[id number] Oral 25 Output: Urine 300 Estimated Blood Loss 10 Other: # Voids 2 Weight 127.5 kg Results CBC & Chem 7: 10/17/22 05:37 10/17/22 05:37 Labs: Abnormal Lab Results - Last 24 Hours (Table) 10/17/22 10/17/22 Range/Units 05:37 05:37 WBC 12.30 H (4.50-10.00) X 10*3/uL MPV 13.5 H (9.5-12.2) FL Neutrophils # 10.59 H (1.80-7.70) X 10*3/uL Lymphocytes # 0.63 L (0.90-5.00) X 10*3/uL Eosinophils # 0 L (0.04-0.35) X 10*3/uL BUN 3 L (7-17) mg/dL Creatinine 0.45 L (0.52-1.04) mg/dL
[2022-10-17] MEDS: LACTATED RINGERS 1,000 ML IV SCH (18:31)
[2022-10-18] MEDS: KETOROLAC 15 MG/ML 1 ML VIAL IVP SCH ×3 (01:14→11:48)
[2022-10-18] MEDS: ONDANSETRON 4 MG/2 ML VIAL IVP PRN ×2 (01:15→07:33)
[2022-10-18] MEDS: ACETAMINOPHEN IV (For NPO) 1,000 MG in EMPTY BAG 1 BAG IVPB SCH ×2 (01:15→06:07)
[2022-10-18] MEDS: ENOXAPARIN 40 MG/0.4 ML SYRINGE SQ SCH (01:16)
[2022-10-18] MEDS: 0.9% NACL WITH KCL 20 MEQ/L 1,000 ML IV SCH (06:08)
[2022-10-18 07:26] VITALS: BP 150/82; PULSE 66; TEMP 98.7
[2022-10-18] MEDS: PANTOPRAZOLE 40 MG/10 ML VIAL IV SCH (07:32)
[2022-10-18] MEDS: FLUoxetine HCL 20 MG CAP PO SCH (07:32)
[2022-10-18] MEDS ORDERED: bisacodyL 5 MG TABLET.DR PO PRN (08:00)
[2022-10-18] MEDS: ALBUTEROL NEBULIZED 2.5 MG/3 ML INHALATION SCH ×2 (08:19→11:52)
[2022-10-18 09:39] LABS: Basophils # (A) 0.04 X 10*3/uL (0.00-0.10); Basophils % (A) 0.4 %; Eosinophils # (A) 0.03 X 10*3/uL (0.04-0.35); Eosinophils % (A) 0.3 %; HCT 34.9 % (37.2-46.3); HGB 11.1 d/dL (12.0-15.0); Lymphocytes # (A) 1.62 X 10*3/uL (0.90-5.00); Lymphocytes % (A) 16.4 %; MCH 28.7 pg (27.0-32.0); MCHC 31.8 d/dL (32.0-37.0); MCV 90.2 FL (80.0-97.0); Mean Platelet Volume 13.8 FL (9.5-12.2); Monocytes # (A) 0.97 X 10*3/uL (0.20-1.00); Monocytes % (A) 9.8 %; NRBC Per 100 WBC 0 X 10*3/uL (0.00-0.01); Neutrophils # (A) 7.21 X 10*3/uL (1.80-7.70); Neutrophils % (A) 72.8 %; Platelet Count 150 X 10*3/uL (140-440); RBC 3.87 X 10*6/uL (4.10-5.20); RDW 13.2 % (11.5-14.5)
--- NOTE | 2022-10-18 10:03 | P.DS ---
Providers Date of admission: 10/16/22 10:25 Expected date of discharge: 10/18/22 Attending physician: Jensen Chang Consults: 10/16/22 15:12 Consult Physician Routine Consulting Provider: Varun Long Consult Reason/Comments: Medical management Do you want consulting provider notified?: Yes Primary care physician: Emery Kevin - Discharge Diagnosis(es) (1) Morbid obesity Patient admitted for elective sleeve gastrectomy. Postoperative upper GI showed no leak or obstruction. Tolerating liquids. Pain is well-controlled. She would like to go home. We'll discharge. Follow-up one week. Current Visit: No Status: Acute Plan - Discharge Summary Discharge Rx Participant: Yes New Discharge Prescriptions: No Action Cetirizine HCl [Zyrtec] 10 mg PO HS Multivitamins, Thera [Multivitamin (formulary)] 1 tab PO DAILY FLUoxetine HCL [PROzac] 40 mg PO DAILY Discharge Medication List Cetirizine HCl [Zyrtec] 10 mg PO HS 08/24/17 [History] FLUoxetine HCL [PROzac] 40 mg PO DAILY 07/29/22 [History] Multivitamins, Thera [Multivitamin (formulary)] 1 tab PO DAILY 07/29/22 [History] Patient Instructions/Handouts: *Surgery [facility] - Scopalamine Patch Instructions
--- NOTE | 2022-10-18 12:47 | P.PN ---
Subjective Progress Note Date: 10/18/22 patient 32-year-old lady with past medical history significant for morbid obesity who presented to the hospital for elective sleeve gastrectomy. Patient has been following up outpatient with surgery for the last several months regarding her obesity. Patient has tried weight loss measures but has not been successful. Surgery discussed sleeve gastrectomy for which patient was scheduled on 10/16. Postoperatively the medicine team were consulted 10/18. Patient seen and examined. Currently tolerating clear liquid diet. States nausea is improved. Patient is medically stable for discharge REVIEW OF SYSTEMS: CONSTITUTIONAL: No fever, no malaise,. CARDIOVASCULAR: No chest pain, no palpitations, no syncope. PULMONARY: No shortness of breath, no cough, GASTROINTESTINAL: No diarrhea, no nausea, no vomiting, no abdominal pain. NEUROLOGICAL: No headaches, no weakness, PHYSICAL EXAMINATION: GENERAL: The patient is alert and oriented x3, not in any acute distress. Well developed, well nourished. HEENT: Pupils are round and equally reacting to light. EOMI. No scleral icterus. No conjunctival pallor. Normocephalic, atraumatic. No pharyngeal erythema. No thyromegaly. CARDIOVASCULAR: S1 and S2 present. No murmurs, rubs, or gallops. PULMONARY: Chest is clear to auscultation, no wheezing or crackles. ABDOMEN: Soft, nontender, nondistended, normoactive bowel sounds. No palpable organomegaly. Laparoscopic surgical incision seen MUSCULOSKELETAL: No joint swelling or deformity. EXTREMITIES: No cyanosis, clubbing, or pedal edema. NEUROLOGICAL: Gross neurological examination did not reveal any focal deficits. SKIN: No rashes. Assessment and plan morbid Obesity status post laparoscopic sleeve gastrectomy GERD Continue antiemetics Currently on clear liquid diet, advance diet per surgery Continue pain management per surgery Patient medically stable for discharge Objective - Vital Signs Vital signs: Vital Signs Temp 98.7 F 10/18/22 06:57 Pulse 66 10/18/22 06:57 Resp 18 10/18/22 06:57 BP 150/82 10/18/22 06:57 Pulse Ox 97 10/18/22 08:19 FiO2 Intake & Output 10/17/22 10/18/22 10/18/22 18:59 06:59 18:59 Other: Voiding Method Toilet # Voids 2 - Labs CBC & Chem 7: 10/18/22 04:34 07/01/23 05:37 Labs: Abnormal Lab Results - Last 24 Hours (Table) 10/18/22 Range/Units 04:34 RBC 3.87 L (4.10-5.20) X 10*6/uL Hgb 11.1 L (12.0-15.0) d/dL Hct 34.9 L (37.2-46.3) % MCHC 31.8 L (32.0-37.0) d/dL MPV 13.8 H (9.5-12.2) FL Eosinophils # 0.03 L (0.04-0.35) X 10*3/uL
== END 2022-10-18 12:12 | disposition home or self-care (01) | DRG 621 ==
LOC: 2ORMAIN 10:25 → 4SSUR 15:34
PROVIDERS: ADMIT Surgery; ATTEND Surgery
PROC: 8E0W4CZ Robotic Assisted Procedure of Trunk Region, Percutaneous Endoscopic Approach (ICD-10-PCS; principal; 2022-10-16 12:05)
PROC: 0DB64Z3 Excision of Stomach, Percutaneous Endoscopic Approach, Vertical (ICD-10-PCS; principal; 2022-10-16 12:05)
DX: E66.01 Morbid (severe) obesity due to excess calories (principal); J30.2 Other seasonal allergic rhinitis; Z68.42 Body mass index [BMI] 45.0-49.9, adult; K21.9 Gastro-esophageal reflux disease without esophagitis; K29.70 Gastritis, unspecified, without bleeding; F32.A Depression, unspecified; F41.9 Anxiety disorder, unspecified; Z79.899 Other long term (current) drug therapy; Z87.891 Personal history of nicotine dependence; Z88.0 Allergy status to penicillin
CPT/HCPCS: 74240; 80051; 81025; 82310; 82565; 83735; 84100; 84520; 85025; 86850; 86900; 86901; 88307; 94760

== ENCOUNTER → 2022-10-21 | Outpatient (CLI) | payer BC ==
[2022-10-21 10:48] VITALS: BMI 48.5
[2022-10-21 10:50] VITALS: BP 140/81; PULSE 76; TEMP 97.9
== END ==
LOC: BARWHC3 10:01
PROVIDERS: ATTEND Surgery
DX: E66.01 Morbid (severe) obesity due to excess calories (principal); Z98.84 Bariatric surgery status
CPT/HCPCS: 97802; 99211

== ENCOUNTER → 2022-10-27 | Outpatient (CLI) | payer BC ==
[2022-10-27 14:05] VITALS: BP 134/85; PULSE 81; RESP 16; TEMP 98.5; BMI 46.4
--- NOTE | 2022-10-27 15:02 | P.BASOAP ---
Subjective Progress Note Date: 10/27/22 Principal diagnosis: Morbid obesity Patient returns after recent sleeve gastrectomy on October 16. Overall doing well. Minimal discomfort. No tachycardia or fever. Drinking 50 ounces of liquids daily. 40-50 g of protein daily. Objective - Vital Signs Vital signs: Vital Signs Temp 98.5 F 10/27/22 14:03 Pulse 81 10/27/22 14:03 Resp 16 10/27/22 14:03 BP 134/85 10/27/22 14:03 Pulse Ox FiO2 Intake & Output 10/26/22 10/27/22 10/27/22 18:59 06:59 18:59 Weight 118.841 kg - Exam Abdomen: Soft, nondistended, incision clean and dry Assessment/Plan (1) Morbid obesity Narrative/Plan: 32-year-old female doing well after previous sleeve gastrectomy. Slowly advance diet. Follow up 2-3 weeks. We'll check annual labs at that time. May return to work on 11/09. Plan: Date: 10/27/22 Initial Weight: 126.552 kg Initial BMI: 49.4 Current Weight: 118.841 kg Current BMI: 46.4 Type of Surgery: Vertical Sleeve Gastrectomy Total Volume in Band: Previous Volume: Volume Removed: Volume Added: Band Size:
== END ==
LOC: BARWHC3 13:40
PROVIDERS: ATTEND Surgery
DX: E66.01 Morbid (severe) obesity due to excess calories (principal); Z71.3 Dietary counseling and surveillance; Z98.84 Bariatric surgery status; Z68.42 Body mass index [BMI] 45.0-49.9, adult; Z88.0 Allergy status to penicillin; Z87.891 Personal history of nicotine dependence
CPT/HCPCS: 97803; 99211

== ENCOUNTER → 2022-10-30 | Outpatient (CLI) | payer BC ==
[~2022-10-30] MED LIST changes: -ACETAMINOPHEN TAB 500 MG TAB PO PRN; -ENOXAPARIN 40 MG/0.4 ML SYRINGE SQ PRN; -ONDANSETRON 4 MG/2 ML VIAL IVP PRN; +SODIUM CHLORIDE 0.9% 2,000 ML IV NR; +SODIUM CHLORIDE 0.9% 500 ML 500 ML in EMPTY BAG 1 BAG IV PRN; -ceFAZolin 3 GM in SODIUM CHLORIDE 0.9% 100 ML IVPB PRN
[2022-10-30 07:23] VITALS: BP 130/83; PULSE 73; RESP 16; TEMP 98.2
== END ==
LOC: PROCWHC3 07:12
PROVIDERS: ATTEND Surgery
DX: E86.0 Dehydration (principal); Z88.0 Allergy status to penicillin
CPT/HCPCS: 96360; 96361

== ENCOUNTER → 2022-11-10 | Outpatient (CLI) | payer BC ==
--- NOTE | 2022-11-10 14:20 | P.BASOAP ---
Subjective Progress Note Date: 11/10/22 Principal diagnosis: Morbid obesity Patient returns for 1 month visit. Doing well since last visit 2 weeks ago. She has lost 6 pounds. Doing much better with her protein and liquid intake. No heartburn. No pain. Objective - Exam Abdomen: Soft, nondistended, incisions clean and dry, nontender Assessment/Plan (1) Morbid obesity Narrative/Plan: Patient doing well after sleeve gastrectomy. Continue dietary and exercise regimen. Check one month labs. Follow up 4-6 weeks. Plan: Date: Initial Weight: 126.552 kg Initial BMI: Current Weight: Current BMI: Type of Surgery: Total Volume in Band: Previous Volume: Volume Removed: Volume Added: Band Size:
[2022-11-10 14:28] VITALS: BMI 45.3
[2022-11-10 16:30] VITALS: BP 128/82; PULSE 82; TEMP 98.1
== END ==
LOC: BARWHC3 13:48
PROVIDERS: ATTEND Surgery
DX: E66.01 Morbid (severe) obesity due to excess calories (principal); Z68.41 Body mass index [BMI] 40.0-44.9, adult; Z88.0 Allergy status to penicillin; Z87.891 Personal history of nicotine dependence
CPT/HCPCS: 97803; 99211

== ENCOUNTER → 2022-11-27 | Outpatient (CLI) | payer BC ==
[2022-11-27 20:15] LABS: HCT 44.3 % (37.2-46.3); HGB 14.2 d/dL (12.0-15.0); MCH 27.6 pg (27.0-32.0); MCHC 32.1 d/dL (32.0-37.0); MCV 86.2 FL (80.0-97.0); Mean Platelet Volume 14.9 FL (9.5-12.2); NRBC Per 100 WBC 0 X 10*3/uL (0.00-0.01); Platelet Count 138 X 10*3/uL (140-440); RBC 5.14 X 10*6/uL (4.10-5.20); WBC 6.11 X 10*3/uL (4.50-10.00)
[2022-11-27 20:35] LABS: ALT 84 U/L (8-44); AST 45 U/L (13-35); Albumin 4.5 d/dL (3.8-4.9); Albumin/Globulin Ratio 1.88 Ratio (1.60-3.17); Alkaline Phosphatase 99 U/L (41-126); Blood Urea Nitrogen 10.4 mg/dL (9.0-27.0); Calcium 9.7 mg/dL (8.7-10.3); Chloride 103 mmol/L (96-109); Globulin 2.4 d/dL (1.6-3.3); Glucose 78 mg/dL (70-110); Iron 55 UG/DL (50-170); Potassium 3.9 mmol/L (3.5-5.5); Sodium 142 mmol/L (135-145); Total Bilirubin 0.4 mg/dL (0.3-1.2); Total Protein 6.9 d/dL (6.2-8.2)
== END | disposition home or self-care (01) ==
LOC: LABWHC1 12:56
PROVIDERS: ATTEND Surgery
DX: E55.9 Vitamin D deficiency, unspecified (principal); K90.89 Other intestinal malabsorption
CPT/HCPCS: 36415; 80053; 82306; 82607; 82746; 83540; 84425; 85027

== ENCOUNTER → 2022-12-29 | Outpatient (CLI) | payer BC ==
[2022-12-29 13:45] VITALS: BP 144/71; PULSE 68; RESP 16; TEMP 98; BMI 41.3
--- NOTE | 2022-12-29 14:15 | P.BASOAP ---
Subjective Progress Note Date: 12/29/22 Principal diagnosis: Morbid obesity Patient returns for evaluation. Last seen 11/10. Doing well since that time. Good protein and liquid intake. No pain. No GERD symptoms. Taking omeprazole once daily. She has been exercising more recently. Mostly in the form of walking. She had her 1 month labs checked in early November. Mild elevation of ALT and AST noted. Objective - Vital Signs Vital signs: Vital Signs Temp 98 F 12/29/22 13:42 Pulse 68 12/29/22 13:42 Resp 16 12/29/22 13:42 BP 144/71 12/29/22 13:42 Pulse Ox FiO2 Intake & Output 12/28/22 12/29/22 12/29/22 18:59 06:59 18:59 Weight 105.687 kg - Exam Abdomen: Soft, nontender, nondistended Assessment/Plan (1) Morbid obesity Narrative/Plan: 32-year-old female doing well after previously gastrectomy. Resume normal activities. Follow-up 4-6 weeks. Check three-month labs at that time. Monitor liver enzymes. Plan: Date: 12/29/22 Initial Weight: 126.552 kg Initial BMI: 49.4 Current Weight: 105.687 kg Current BMI: 41.3 Type of Surgery: Vertical Sleeve Gastrectomy Total Volume in Band: Previous Volume: Volume Removed: Volume Added: Band Size:
== END ==
LOC: BARWHC3 13:33
PROVIDERS: ATTEND Surgery
DX: E66.01 Morbid (severe) obesity due to excess calories (principal); Z98.84 Bariatric surgery status; Z68.41 Body mass index [BMI] 40.0-44.9, adult; Z88.0 Allergy status to penicillin; Z87.891 Personal history of nicotine dependence
CPT/HCPCS: 97803; 99211

== ENCOUNTER → 2024-03-28 | Outpatient (CLI) | payer BC ==
[2024-03-28 14:22] VITALS: BP 144/71; PULSE 68; RESP 16; TEMP 98; BMI 37.2
--- NOTE | 2024-03-28 14:49 | P.BASOAP ---
Subjective Progress Note Date: 03/28/24 Principal diagnosis: Morbid obesity Patient returns for recheck. Underwent sleeve gastrectomy September 2022. Her last follow-up with me was last December. Has not had any follow-up or labs since then. She started a new job. 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 She is a bit less active because she is in her car more. Lowest weight was 294. Highest weight was 299. Current weight 210. No GERD, no nausea vomiting. Does not take antiacids. Objective - Vital Signs Vital signs: Vital Signs Temp 98 F 03/28/24 14:19 Pulse 68 03/28/24 14:19 Resp 16 03/28/24 14:19 BP 144/71 03/28/24 14:19 Pulse Ox FiO2 Intake & Output 03/27/24 03/28/24 03/28/24 18:59 06:59 18:59 Weight 95.254 kg - Exam abdomen: Soft, nontender, nondistended Assessment/Plan (1) Morbid obesity Narrative/Plan: 33-year-old female doing fairly well after previous sleeve gastrectomy. Unfortunately patient has gained back some weight. Patient has had poor follow- up. Discussed the importance of exercise and dietary regimen. Not interested in seeing dietitian today. Will order annual lab work at this time. Recheck 6 months. Plan: Date: 03/28/24 Initial Weight: 126.552 kg Initial BMI: 49.4 Current Weight: 95.254 kg Current BMI: 37.2 Type of Surgery: Vertical Sleeve Gastrectomy Total Volume in Band: Previous Volume: Volume Removed: Volume Added: Band Size:
== END ==
LOC: BARWHC3 14:09
PROVIDERS: ATTEND Surgery
DX: E66.01 Morbid (severe) obesity due to excess calories (principal); Z68.37 Body mass index [BMI] 37.0-37.9, adult; Z88.0 Allergy status to penicillin; Z87.891 Personal history of nicotine dependence
CPT/HCPCS: 99211